=== PATIENT | female | born 1975 | race Caucasian/White ===

== ENCOUNTER → 2017-07-30 06:59 | Outpatient (CLI) | payer OTHER, SELFPAY ==
[2017-07-30 09:31] LABS: Free T3, Triiodothyronine Free 4.52 pg/mL (2.77-5.27); Free T4, Direct Thyroxine 1.34 ng/dL (0.78-2.19)
[2017-07-30 09:44] LABS: Thyroid Stimulating Hormone < 0.02 uIU/mL (0.47-4.68)
[2017-08-02 12:55] LABS: Triiodothyronine T3 Reverse 20 ng/dL (8-25)
== END ==
PROVIDERS: PCP Family Medicine; Visit Provider Family Medicine
DX: E03.9 Hypothyroidism, unspecified (principal)
CPT/HCPCS: 36415; 84439; 84443; 84481; 84482

== ENCOUNTER → 2017-08-09 08:12 | Outpatient (CLI) | payer OTHER, SELFPAY ==
[2017-08-09 09:07] LABS: Add Manual Diff / Slide Review NO; Hematocrit 41.3 % (36-46); Lymphocytes Percent Auto 31.3 % (25-40); Mean Corpuscular HGB Conc 33.8 % (30-36); Mean Corpuscular Hemoglobin 29.3 PG (26-34); Mean Corpuscular Volume 86.6 fL (80-100); Neutrophils Absolute Auto 4600 /uL (3000-5900); Neutrophils Percent Auto 55.7 % (50-75); Platelet Count 224 X10^3/uL (150-400); Red Blood Cell Count 4.77 X10^6/uL (4.0-5.2); White Blood Cell Count 8.2 X10^3/uL (4.5-11.0)
[2017-08-09 09:14] LABS: Hemoglobin A1C% w Est Avg Glu 5.5 % (4.0-6.0)
[2017-08-09 09:40] LABS: Alanine Aminotransferase 55 IU/L (9-52); Albumin 3.7 g/dL (3.5-5.0); Albumin Globulin Ratio 1.3 (1.0-2.8); Alkaline Phosphatase 74 U/L (38-126); Aspartate Aminotransferase 29 IU/L (14-36); BUN Creatinine Ratio 13.8 (6-22); Bilirubin Total 0.3 mg/dL (0.2-1.3); Blood Urea Nitrogen 11 mg/dL (7-17); Calcium 9.2 mg/dL (8.4-10.2); Carbon Dioxide 22 mmol/L (22-32); Chloride 108 mmol/L (98-107); Cholesterol 138 mg/dL (140-199); Estimated Glomerular Filt Rate > 60.0 mL/min (>60); Globulin 2.8 g/dL (1.7-4.1); Glucose 107 mg/dL (70-100); HDL Cholesterol 40 mg/dL (40-60); HEMOLYSIS < 15 (0-50); LDL Cholesterol Calculated 69 mg/dL (<100); Potassium 4.2 mmol/L (3.4-5.1); Sodium 140 mmol/L (137-145); Total Protein 6.5 g/dL (6.3-8.2); Triglycerides 144 mg/dL (35-150)
[2017-08-09 09:53] LABS: Vitamin D 25 Hydroxy (D3) 60.6 ng/mL (30.0-100.0)
[2017-08-09 10:12] LABS: Ferritin 20.7 ng/mL (6.27-137)
== END ==
PROVIDERS: PCP Family Medicine; Visit Provider Family Medicine
DX: R53.83 Other fatigue (principal); E55.9 Vitamin D deficiency, unspecified; E06.3 Autoimmune thyroiditis; E66.9 Obesity, unspecified
CPT/HCPCS: 36415; 80053; 80061; 82306; 82728; 83036; 85025

== ENCOUNTER → 2017-08-19 07:08 | Outpatient (CLI) | payer OTHER, SELFPAY ==
[2017-08-19 08:44] LABS: HEMOLYSIS < 15 (0-50); Iron 28 ug/dL (37-170)
[2017-08-19 08:55] LABS: Percent Iron Saturation 8 % (15-50); Total Iron Binding Capacity 338 ug/dL (265-497); Transferrin 266 mg/dL (206-381)
[2017-08-19 09:21] LABS: Ferritin 25.2 ng/mL (6.27-137)
[2017-08-20 14:56] LABS: Insulin Level Total 32.9 uIU/mL (2.0-19.6)
[2017-08-21 15:13] LABS: Hepatitis A Antibody IgM NONREACTIVE; Hepatitis B Core Antibody IgM NONREACTIVE; Hepatitis B Surface Antigen NONREACTIVE; Hepatitis C Antibody NONREACTIVE
== END ==
PROVIDERS: PCP Family Medicine; Visit Provider Family Medicine
DX: R53.83 Other fatigue (principal); E66.9 Obesity, unspecified; E55.9 Vitamin D deficiency, unspecified; E06.3 Autoimmune thyroiditis
CPT/HCPCS: 36415; 80074; 82728; 83525; 83540; 83550

== ENCOUNTER → 2018-03-22 15:32 | Outpatient (CLI) | payer OTHER, SELFPAY ==
--- NOTE | 2018-03-22 | DI.RAD.S_ITS ---
PROCEDURE: XR CHEST 2V INDICATIONS: CONGESTION TECHNIQUE: 2 views of the chest were acquired. COMPARISON: None. FINDINGS: Surgical changes and devices: None. Lungs and pleura: Lungs are clear. No pleural effusions or pneumothorax. Mediastinum: Mediastinal contours are normal. Heart size is normal. Bones and chest wall: No suspicious bony abnormalities. Soft tissues appear unremarkable. IMPRESSION: No acute disease Dictated by: Tae Ohara M.D. on 03/22/2018 at 16:07 Approved by: Tae Ohara M.D. on 03/22/2018 at 16:08
== END ==
PROVIDERS: PCP Family Medicine; Visit Provider Family Medicine
DX: R09.89 Other specified symptoms and signs involving the circulatory and respiratory systems (principal)
CPT/HCPCS: 71046

== ENCOUNTER → 2018-09-01 07:12 | Outpatient (CLI) | payer OTHER, SELFPAY ==
[2018-09-01 07:47] LABS: Add Manual Diff / Slide Review NO; Basophils Absolute Auto 100 /uL (0-100); Basophils Percent Auto 0.8 % (0-2); Eosinophils Absolute Auto 300 /uL (0-450); Eosinophils Percent Auto 3.2 % (2-4); Hemoglobin 14.3 g/dL (12.0-16.0); Lymphocytes Absolute Auto 2500 /uL (1100-4500); Mean Corpuscular HGB Conc 34.9 % (30-36); Mean Corpuscular Hemoglobin 30.3 PG (26-34); Mean Corpuscular Volume 86.9 fL (80-100); Monocytes Absolute Auto 600 /uL (0-900); Monocytes Percent Auto 7.7 % (3-14); Neutrophils Absolute Auto 4800 /uL (1500-7000); Neutrophils Percent Auto 58.3 % (50-75); Platelet Count 205 X10^3/uL (150-400); Red Blood Cell Count 4.72 X10^6/uL (4.0-5.2); Red Cell Distribution Width 12.5 % (11.6-14.8); White Blood Cell Count 8.2 X10^3/uL (4.5-11.0)
[2018-09-01 07:55] LABS: Hemoglobin A1C% w Est Avg Glu 5.2 % (4.0-6.0)
[2018-09-01 08:01] LABS: Alanine Aminotransferase 18 IU/L (9-52); Albumin 3.6 g/dL (3.5-5.0); Albumin Globulin Ratio 1.3 (1.0-2.8); Alkaline Phosphatase 86 U/L (38-126); Aspartate Aminotransferase 18 IU/L (14-36); BUN Creatinine Ratio 16.3 (6-22); Bilirubin Total 0.3 mg/dL (0.2-1.3); Blood Urea Nitrogen 13 mg/dL (7-17); Calcium 8.9 mg/dL (8.4-10.2); Carbon Dioxide 21 mmol/L (22-32); Chloride 107 mmol/L (98-107); Cholesterol 155 mg/dL (140-199); Estimated Glomerular Filt Rate > 60.0 mL/min (>60); Globulin 2.8 g/dL (1.7-4.1); Glucose 109 mg/dL (70-100); HDL Cholesterol 25 mg/dL (40-60); Potassium 4.3 mmol/L (3.4-5.1); Total Protein 6.4 g/dL (6.3-8.2)
[2018-09-01 08:07] LABS: HEMOLYSIS 41 (0-50)
[2018-09-01 08:26] LABS: Triglycerides 818 mg/dL (35-150)
[2018-09-01 08:27] LABS: Sodium 137 mmol/L (137-145)
[2018-09-01 08:30] LABS: HEMOLYSIS 19 (0-50)
[2018-09-01 08:32] LABS: Iron 34 ug/dL (37-170)
[2018-09-01 08:42] LABS: Percent Iron Saturation 11 % (15-50); Total Iron Binding Capacity 303 ug/dL (265-497); Transferrin 248 mg/dL (206-381)
[2018-09-01 08:48] LABS: Free T4, Direct Thyroxine 1.22 ng/dL (0.78-2.19)
[2018-09-01 08:52] LABS: Vitamin D 25 Hydroxy (D3) 62.5 ng/mL (30.0-100.0)
[2018-09-01 09:02] LABS: Thyroid Stimulating Hormone < 0.02 uIU/mL (0.47-4.68)
[2018-09-04 15:56] LABS: Insulin Level Total 27.7 uIU/mL (2.0-19.6)
== END ==
PROVIDERS: Family Provider Family Medicine; PCP Family Medicine; Visit Provider Family Medicine
DX: Z00.01 Encounter for general adult medical examination with abnormal findings (principal); E06.3 Autoimmune thyroiditis; E66.9 Obesity, unspecified; E55.9 Vitamin D deficiency, unspecified; R73.01 Impaired fasting glucose
CPT/HCPCS: 36415; 80053; 80061; 82306; 82728; 83036; 83525; 83540; 83550; 84439; 84443; 84481; 85025

== ENCOUNTER → 2018-12-04 06:48 | Outpatient (CLI) | payer OTHER, SELFPAY ==
[2018-12-04 08:33] LABS: Glucose 99 mg/dL (70-100)
[2018-12-04 08:43] LABS: HEMOLYSIS < 15 (0-50); Iron 183 ug/dL (37-170)
[2018-12-04 08:51] LABS: Free T3, Triiodothyronine Free 4.12 pg/mL (2.77-5.27); Free T4, Direct Thyroxine 1.44 ng/dL (0.78-2.19)
[2018-12-04 08:54] LABS: Percent Iron Saturation 64 % (15-50); Total Iron Binding Capacity 286 ug/dL (265-497); Transferrin 231 mg/dL (206-381)
[2018-12-04 09:05] LABS: Thyroid Stimulating Hormone < 0.02 uIU/mL (0.47-4.68)
[2018-12-04 09:07] LABS: Ferritin 36.2 ng/mL (6.27-137)
== END ==
PROVIDERS: PCP Family Medicine; Visit Provider Family Medicine
DX: E06.3 Autoimmune thyroiditis (principal); E61.1 Iron deficiency; R73.01 Impaired fasting glucose
CPT/HCPCS: 36415; 82728; 82947; 83540; 83550; 84439; 84443; 84481

== ENCOUNTER → 2019-09-13 07:36 | Outpatient (CLI) | payer OTHER, SELFPAY ==
[2019-09-13 09:33] LABS: Hemoglobin A1C% w Est Avg Glu 5.6 % (4.0-6.0)
[2019-09-13 09:38] LABS: Iron 123 ug/dL (37-170)
[2019-09-13 09:39] LABS: Alanine Aminotransferase 27 IU/L (<35); Albumin 3.6 g/dL (3.5-5.0); Albumin Globulin Ratio 1.5 (1.0-2.8); Alkaline Phosphatase 71 U/L (38-126); Aspartate Aminotransferase 22 IU/L (14-36); BUN Creatinine Ratio 10.2 (6-22); Bilirubin Total 0.5 mg/dL (0.2-1.3); Blood Urea Nitrogen 9 mg/dL (7-17); Calcium 9.1 mg/dL (8.4-10.2); Carbon Dioxide 19 mmol/L (22-32); Chloride 110 mmol/L (98-107); Estimated Glomerular Filt Rate > 60.0 mL/min (>60); Globulin 2.4 g/dL (1.7-4.1); Glucose 96 mg/dL (70-100); HEMOLYSIS < 15 (0-50); Potassium 4.6 mmol/L (3.4-5.1); Sodium 137 mmol/L (137-145)
[2019-09-13 09:48] LABS: Percent Iron Saturation 39 % (15-50); Total Iron Binding Capacity 315 ug/dL (265-497)
[2019-09-13 09:55] LABS: Free T4, Direct Thyroxine 1.28 ng/dL (0.78-2.19)
[2019-09-13 10:08] LABS: Thyroid Stimulating Hormone 0.022 uIU/mL (0.47-4.68)
[2019-09-14 06:38] LABS: Insulin Level Total 37.2 uIU/mL (2.6-24.9)
[2019-09-17 01:09] LABS: Triiodothyronine T3 Reverse 22.5 ng/dL (9.2-24.1)
== END ==
PROVIDERS: PCP Family Medicine; Referring Provider Family Medicine; Visit Provider Family Medicine
DX: E03.9 Hypothyroidism, unspecified (principal); E88.81 Metabolic syndrome and other insulin resistance; R79.0 Abnormal level of blood mineral
CPT/HCPCS: 36415; 80053; 83036; 83525; 83540; 83550; 84439; 84443; 84481; 84482

== ENCOUNTER → 2020-05-03 10:40 | Outpatient (CLI) | payer OTHER, SELFPAY ==
--- NOTE | 2020-05-03 10:41 | DI.MG.S_ITS ---
BILATERAL DIGITAL SCREENING MAMMOGRAM 3D/2D WITH CAD: 05/03/2020 CLINICAL: Routine screening. Baseline exam. No prior exams were available for comparison. The tissue of both breasts is heterogeneously dense. This may lower the sensitivity of mammography. Current study was also evaluated with a Computer Aided Detection (CAD) system. No significant masses, calcifications, or other findings are seen in either breast. IMPRESSION: NEGATIVE There is no mammographic evidence of malignancy. A 1 year screening mammogram is recommended. This exam was interpreted at Station ID: [id number]. NOTE: For mammograms, a report in lay terms will be sent to the patient. Approximately 15% of breast malignancies will not be visualized mammographically. In the management of a palpable breast mass, a negative mammogram must not discourage biopsy of a clinically suspicious lesion. Electronically Signed By: Marin Oliva M.D., jr/melany:05/03/2020 16:28:20 letter sent: Normal Exam ACR BI-RADS Category 1: Negative [id number]
== END ==
PROVIDERS: PCP Family Medicine; Referring Provider Family Medicine; Visit Provider Family Medicine
DX: Z12.31 Encounter for screening mammogram for malignant neoplasm of breast (principal)
CPT/HCPCS: 77063; 77067

== ENCOUNTER → 2020-09-05 07:06 | Outpatient (CLI) | payer OTHER, SELFPAY ==
[2020-09-05 08:16] LABS: HEMOLYSIS < 15 (0-50); Iron 108 ug/dL (37-170)
[2020-09-05 08:18] LABS: Alanine Aminotransferase 22 IU/L (<35); Albumin 3.6 g/dL (3.5-5.0); Albumin Globulin Ratio 1.4 (1.0-2.8); Alkaline Phosphatase 86 U/L (38-126); Aspartate Aminotransferase 19 IU/L (14-36); BUN Creatinine Ratio 13.3 (6-22); Bilirubin Total 0.4 mg/dL (0.2-1.3); Blood Urea Nitrogen 12 mg/dL (7-17); Calcium 9.7 mg/dL (8.4-10.2); Carbon Dioxide 26 mmol/L (22-32); Chloride 107 mmol/L (98-107); Cholesterol 163 mg/dL (140-199); Estimated Glomerular Filt Rate > 60.0 mL/min (>60); Globulin 2.5 g/dL (1.7-4.1); Glucose 95 mg/dL (70-100); HDL Cholesterol 55 mg/dL (40-60); HEMOLYSIS < 15 (0-50); LDL Cholesterol Calculated 75 mg/dL (<100); Potassium 4.8 mmol/L (3.4-5.1); Sodium 139 mmol/L (137-145); Total Protein 6.1 g/dL (6.3-8.2); Triglycerides 166 mg/dL (35-150)
[2020-09-05 08:28] LABS: Percent Iron Saturation 34 % (15-50); Total Iron Binding Capacity 317 ug/dL (265-497); Transferrin 237 mg/dL (206-381)
[2020-09-05 08:38] LABS: Free T3, Triiodothyronine Free 3.09 pg/mL (2.77-5.27); Free T4, Direct Thyroxine 1.23 ng/dL (0.78-2.19)
[2020-09-05 08:53] LABS: Thyroid Stimulating Hormone < 0.015 uIU/mL (0.47-4.68)
[2020-09-05 08:55] LABS: Ferritin 39 ng/mL (6-137)
[2020-09-05 10:12] LABS: Hemoglobin A1C% w Est Avg Glu 5.2 % (4.0-6.0)
[2020-09-06 08:29] LABS: Insulin Level Total 20.6 uIU/mL (2.6-24.9)
[2020-09-08 11:41] LABS: Triiodothyronine T3 Reverse 25.8 ng/dL (9.2-24.1)
== END ==
PROVIDERS: PCP Family Medicine; Referring Provider Family Medicine; Visit Provider Family Medicine
DX: E03.9 Hypothyroidism, unspecified (principal); E88.81 Metabolic syndrome and other insulin resistance; E78.1 Pure hyperglyceridemia
CPT/HCPCS: 36415; 80053; 80061; 82728; 83036; 83525; 83540; 83550; 84439; 84443; 84481; 84482

== ENCOUNTER → 2021-01-11 18:18 | Outpatient (CLI) | payer OTHER, SELFPAY ==
[2021-01-11 18:50] LABS: COVID19 -Nasal RAPID Negative (Negative)
== END ==
PROVIDERS: PCP Family Medicine; Visit Provider Physician Assistant
DX: Z20.822 Contact with and (suspected) exposure to COVID-19 (principal); J06.9 Acute upper respiratory infection, unspecified
CPT/HCPCS: 87635

== ENCOUNTER → 2021-06-12 06:46 | Outpatient (CLI) | payer OTHER, SELFPAY ==
[2021-06-12 08:06] LABS: Add Manual Diff / Slide Review NO; Basophils Absolute Auto 100 /uL (0-100); Basophils Percent Auto 1.1 % (0-2); Eosinophils Absolute Auto 200 /uL (0-450); Eosinophils Percent Auto 2.6 % (2-4); Hematocrit 41.4 % (36-46); Hemoglobin 14.1 g/dL (12.0-16.0); Lymphocytes Absolute Auto 2300 /uL (1100-4500); Lymphocytes Percent Auto 36.7 % (25-40); Mean Corpuscular Hemoglobin 28.9 PG (26-34); Monocytes Absolute Auto 500 /uL (0-900); Monocytes Percent Auto 8.1 % (3-14); Neutrophils Absolute Auto 3200 /uL (1500-7000); Neutrophils Percent Auto 51.5 % (50-75); Platelet Count 193 X10^3/uL (150-400); Red Blood Cell Count 4.87 X10^6/uL (4.0-5.2); Red Cell Distribution Width 12.7 % (11.6-14.8); White Blood Cell Count 6.3 X10^3/uL (4.5-11.0)
[2021-06-12 08:22] LABS: Alanine Aminotransferase 17 IU/L (<35); Albumin 3.6 g/dL (3.5-5.0); Albumin Globulin Ratio 1.4 (1.0-2.8); Alkaline Phosphatase 80 U/L (38-126); Aspartate Aminotransferase 17 IU/L (14-36); BUN Creatinine Ratio 12.1 (6-22); Bilirubin Total 0.6 mg/dL (0.2-1.3); Blood Urea Nitrogen 12 mg/dL (7-17); Calcium 9.1 mg/dL (8.4-10.2); Carbon Dioxide 23 mmol/L (22-32); Chloride 110 mmol/L (98-107); Estimated Glomerular Filt Rate > 60 mL/min (>60); Globulin 2.5 g/dL (1.7-4.1); Glucose 97 mg/dL (70-100); HEMOLYSIS < 15 (0-50); Potassium 4.4 mmol/L (3.4-5.1); Sodium 140 mmol/L (137-145); Total Protein 6.1 g/dL (6.3-8.2)
[2021-06-12 09:09] LABS: Free T3, Triiodothyronine Free 4.46 pg/mL (2.77-5.27); Free T4, Direct Thyroxine 1.72 ng/dL (0.78-2.19)
[2021-06-12 09:36] LABS: Thyroid Stimulating Hormone < 0.015 uIU/mL (0.47-4.68)
[2021-06-13 06:11] LABS: Dehydroepiandrosterone Sulfate 68.7 ug/dL (41.2-243.7)
[2021-06-15 10:15] LABS: Triiodothyronine T3 Reverse 22.4 ng/dL (9.2-24.1)
[2021-06-18 18:19] LABS: Pregnenolone <10 ng/dL (.)
== END ==
PROVIDERS: Family Medicine; PCP Family Medicine; Referring Provider Naturopath; Visit Provider Naturopath
DX: E03.9 Hypothyroidism, unspecified (principal); R53.83 Other fatigue; E88.81 Metabolic syndrome and other insulin resistance
CPT/HCPCS: 80053; 82627; 84140; 84439; 84443; 84481; 84482; 85025

== ENCOUNTER → 2021-12-23 11:45 | Outpatient (CLI) | payer OTHER, SELFPAY ==
[2021-12-23 12:36] LABS: COVID-19 CEPHEID 4-PLEX PCR Negative (Negative); Influenza A - CEPHEID Flu A NEGATIVE (NEGATIVE); Influenza B - CEPHEID Flu B NEGATIVE (NEGATIVE); Respiratory Syncytial Virus Negative (Negative)
== END ==
PROVIDERS: PCP Family Medicine; Visit Provider Physician Assistant
DX: R05.9 Cough, unspecified (principal)
CPT/HCPCS: 0241U

== ENCOUNTER → 2022-11-22 06:34 | Outpatient (CLI) | payer OTHER, SELFPAY ==
[2022-11-22 07:45] LABS: Add Manual Diff / Slide Review NO; Basophils Absolute Auto 100 /uL (0-100); Basophils Percent Auto 1.5 % (0-2); Eosinophils Absolute Auto 500 /uL (0-450); Eosinophils Percent Auto 5.6 % (2-4); Hematocrit 40.5 % (36-46); Hemoglobin 13.8 g/dL (12.0-16.0); Lymphocytes Absolute Auto 3000 /uL (1100-4500); Lymphocytes Percent Auto 31.1 % (25-40); Mean Corpuscular Hemoglobin 29.7 PG (26-34); Mean Corpuscular Volume 87.5 fL (80-100); Monocytes Absolute Auto 600 /uL (0-900); Monocytes Percent Auto 6.4 % (3-14); Neutrophils Absolute Auto 5300 /uL (1500-7000); Neutrophils Percent Auto 55.4 % (50-75); Platelet Count 191 X10^3/uL (150-400); Red Blood Cell Count 4.63 X10^6/uL (4.0-5.2); Red Cell Distribution Width 14.8 % (11.6-14.8); White Blood Cell Count 9.6 X10^3/uL (4.5-11.0)
[2022-11-22 07:51] LABS: Hemoglobin A1C% w Est Avg Glu 5.4 % (4.0-6.0)
[2022-11-22 08:11] LABS: HEMOLYSIS 47 (0-50); Iron 127 ug/dL (37-170)
[2022-11-22 08:14] LABS: Alanine Aminotransferase 23 IU/L (<35); Albumin 4.4 g/dL (3.5-5.0); Albumin Globulin Ratio 1.5 (1.0-2.8); Alkaline Phosphatase 69 U/L (38-126); Aspartate Aminotransferase 29 IU/L (14-36); BUN Creatinine Ratio 11.5 (6-22); Bilirubin Total 0.7 mg/dL (0.2-1.3); Blood Urea Nitrogen 14 mg/dL (7-17); Calcium 9.4 mg/dL (8.4-10.2); Carbon Dioxide 21 mmol/L (22-32); Chloride 106 mmol/L (98-107); Cholesterol 221 mg/dL (140-199); Estimated Glomerular Filt Rate 55 mL/min (>60); Glucose 99 mg/dL (70-100); HDL Cholesterol 50 mg/dL (40-60); HEMOLYSIS 17 (0-50); LDL Cholesterol Calculated 139 mg/dL (<100); Potassium 4.2 mmol/L (3.4-5.1); Sodium 136 mmol/L (137-145); Total Protein 7.4 g/dL (6.3-8.2); Triglycerides 160 mg/dL (35-150)
[2022-11-22 08:21] LABS: Percent Iron Saturation 36 % (15-50); Total Iron Binding Capacity 356 ug/dL (265-497); Transferrin 263 mg/dL (206-381)
[2022-11-22 08:29] LABS: Free T3, Triiodothyronine Free 2.07 pg/mL (2.77-5.27); Free T4, Direct Thyroxine 0.55 ng/dL (0.78-2.19)
[2022-11-22 08:42] LABS: Thyroid Stimulating Hormone 72.7 uIU/mL (0.47-4.68)
[2022-11-22 08:48] LABS: Ferritin 76 ng/mL (6-137)
[2022-11-24 08:29] LABS: Insulin Level Total 15.4 uIU/mL (2.6-24.9)
== END ==
PROVIDERS: PCP Family Medicine; Referring Provider Family Medicine; Visit Provider Family Medicine
DX: E03.9 Hypothyroidism, unspecified (principal); R53.83 Other fatigue; E88.818 Other insulin resistance
CPT/HCPCS: 36415; 80053; 80061; 82728; 83036; 83525; 83540; 83550; 84439; 84443; 84481; 84482; 85025

== ENCOUNTER → 2023-02-07 07:29 | Outpatient (CLI) | payer OTHER, SELFPAY ==
[2023-02-07 08:52] LABS: Albumin 3.4 g/dL (3.5-5.0); BUN Creatinine Ratio 9.7 (6-22); Blood Urea Nitrogen 9 mg/dL (7-17); Calcium 9.1 mg/dL (8.4-10.2); Carbon Dioxide 24 mmol/L (22-32); Chloride 106 mmol/L (98-107); Estimated Glomerular Filt Rate > 60 mL/min (>60); Glucose 103 mg/dL (70-100); HEMOLYSIS < 15 (0-50); Phosphorous 2.9 mg/dL (2.5-4.5); Sodium 135 mmol/L (137-145)
[2023-02-07 09:07] LABS: Free T4, Direct Thyroxine 1.23 ng/dL (0.78-2.19)
[2023-02-07 09:21] LABS: Thyroid Stimulating Hormone 0.027 uIU/mL (0.47-4.68)
== END ==
PROVIDERS: PCP Family Medicine; Referring Provider Family Medicine; Visit Provider Family Medicine
DX: E03.9 Hypothyroidism, unspecified (principal); R53.83 Other fatigue
CPT/HCPCS: 36415; 80069; 84439; 84443; 84481; 84482

== ENCOUNTER → 2024-03-15 06:25 | Outpatient (CLI) | payer OTHER, SELFPAY ==
[2024-03-15 07:46] LABS: Add Manual Diff / Slide Review NO; Basophils Absolute Auto 100 /uL (0-100); Basophils Percent Auto 1.1 % (0-2); Eosinophils Absolute Auto 400 /uL (0-450); Eosinophils Percent Auto 4.5 % (2-4); Hematocrit 43.2 % (36-46); Hemoglobin 14.5 g/dL (12.0-16.0); Lymphocytes Absolute Auto 3100 /uL (1100-4500); Lymphocytes Percent Auto 33.2 % (25-40); Mean Corpuscular HGB Conc 33.5 % (30-36); Mean Corpuscular Hemoglobin 29.3 PG (26-34); Mean Corpuscular Volume 87.5 fL (80-100); Monocytes Absolute Auto 600 /uL (0-900); Monocytes Percent Auto 6.4 % (3-14); Neutrophils Absolute Auto 5100 /uL (1500-7000); Neutrophils Percent Auto 54.8 % (50-75); Platelet Count 238 X10^3/uL (150-400); Red Blood Cell Count 4.94 X10^6/uL (4.0-5.2); White Blood Cell Count 9.3 X10^3/uL (4.5-11.0)
[2024-03-15 08:03] LABS: HEMOLYSIS < 15 (0-50); Iron 79 ug/dL (37-170)
[2024-03-15 08:10] LABS: Alanine Aminotransferase 32 IU/L (<35); Albumin Globulin Ratio 1.5 (1.0-2.8); Alkaline Phosphatase 93 U/L (38-126); Aspartate Aminotransferase 24 IU/L (14-36); BUN Creatinine Ratio 11.8 (6-22); Bilirubin Total 0.3 mg/dL (0.2-1.3); Blood Urea Nitrogen 12 mg/dL (7-17); Calcium 9.3 mg/dL (8.4-10.2); Carbon Dioxide 23 mmol/L (22-32); Chloride 108 mmol/L (98-107); Cholesterol 172 mg/dL (140-199); Estimated Glomerular Filt Rate > 60 mL/min (>60); Globulin 2.6 g/dL (1.7-4.1); Glucose 100 mg/dL (70-100); HDL Cholesterol 40 mg/dL (40-60); HEMOLYSIS < 15 (0-50); LDL Cholesterol Calculated 75 mg/dL (<100); Potassium 4.5 mmol/L (3.4-5.1); Sodium 138 mmol/L (137-145); Total Protein 6.6 g/dL (6.3-8.2); Triglycerides 283 mg/dL (35-150)
[2024-03-15 08:15] LABS: Percent Iron Saturation 28 % (15-50); Total Iron Binding Capacity 278 ug/dL (265-497); Transferrin 245 mg/dL (206-381)
[2024-03-15 08:21] LABS: Vitamin D 25 Hydroxy (D3) 52.5 ng/mL (30.0-100.0)
[2024-03-15 08:22] LABS: Free T3, Triiodothyronine Free 3.48 pg/mL (2.77-5.27); Free T4, Direct Thyroxine 0.93 ng/dL (0.78-2.19); Progesterone, Total 0.39 ng/mL
[2024-03-15 08:31] LABS: Hemoglobin A1C% w Est Avg Glu 5.5 % (4.0-6.0)
[2024-03-15 08:36] LABS: Thyroid Stimulating Hormone 0.155 uIU/mL (0.47-4.68)
[2024-03-15 08:37] LABS: Estradiol, Total 30.2 pg/mL
[2024-03-15 08:45] LABS: Ferritin 37 ng/mL (6-137)
[2024-03-16 07:40] LABS: Insulin Level Total 28.7 uIU/mL (2.6-24.9)
[2024-03-20 15:11] LABS: Triiodothyronine T3 Reverse 12.2 ng/dL (.)
== END ==
PROVIDERS: PCP Family Medicine; Referring Provider Family Medicine; Visit Provider Family Medicine
DX: E03.9 Hypothyroidism, unspecified (principal); R53.83 Other fatigue; N95.9 Unspecified menopausal and perimenopausal disorder; E55.9 Vitamin D deficiency, unspecified
CPT/HCPCS: 36415; 80053; 80061; 82306; 82670; 82728; 83001; 83002; 83036; 83525; 83540; 83550; 84144; 84439; 84443; 84481; 84482; 85025

== ENCOUNTER → 2024-11-03 14:10 | Outpatient (CLI) | payer OTHER, SELFPAY ==
--- NOTE | 2024-11-03 14:11 | DI.MG.S_ITS ---
MM screening mammo BI: 11/03/2024. BI-RADS: 1 CLINICAL: 49-year old female for bilateral screening mammogram. Tyrer-Cuzick lifetime risk of 11.1%. No personal or first-degree family history of breast cancer. PRIOR EXAMS 05/03/2020. MAMMOGRAPHY TECHNIQUE: 2D and 3D (tomosynthesis) digital mammographic views obtained, with additional images as needed for full coverage. Current study was also evaluated with a Computer Aided Detection (CAD) system. DENSITY B. There are scattered areas of fibroglandular density. MAMMOGRAPHY FINDINGS Bilateral: No suspicious mass, asymmetry, microcalcification, or other abnormality seen. IMPRESSION: * No evidence of malignancy. RECOMMENDATIONS Bilateral * Annual screening mammography. OVERALL ASSESSMENT CATEGORY BI-RADS-1: Negative. [employer] recommends annual screening mammography beginning at age 40 for women with average risk of breast cancer. ELECTRONICALLY SIGNED: Sluy Sharif M.D. on 11/03/2024 at 04:27:21 PM PT Interpreting Station ID: [id number]
== END ==
LOC: MAMMO 14:10
PROVIDERS: PCP Family Medicine; Referring Provider Family Medicine; Visit Provider Family Medicine
DX: Z12.31 Encounter for screening mammogram for malignant neoplasm of breast (principal)
CPT/HCPCS: 77063; 77067